=== PATIENT | female | born 1960 | race Hispanic/Latino ===

== ENCOUNTER 2024-11-06 16:23 | Emergency (ER) | payer OTHER, MEDICARE ==
[~2024-11-06] VITALS: Ht 157.5 cm; Wt 77.2 kg
[2024-11-06 16:26] VITALS: BP 174/98; PULSE 88; RESP 18; TEMP 98.3
[2024-11-06] MEDS: ketOROlac 30MG VIAL (30MG/ML) IM ONE (17:23)
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
[2024-11-06] MEDS ORDERED: MELO-108 PO (18:05)
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
--- NOTE | 2024-11-06 18:24 | HMCIMG ---
RIGHT HUMERUS RADIOGRAPHS - 2 VIEWS INDICATION: Pain COMPARISON: None FINDINGS: AP and lateral views. No acute fracture or subluxation identified. No radiopaque foreign body noted. IMPRESSION: No evidence for fracture or dislocation.
--- NOTE | 2024-11-06 18:24 | HMCIMG ---
RIGHT SHOULDER RADIOGRAPHS - 2-3 VIEWS INDICATION: Pain COMPARISON: None FINDINGS: No fracture or dislocation identified. Acromioclavicular and glenohumeral alignments are well maintained. Visible portions of the right clavicle are intact. IMPRESSION: No evidence for fracture or dislocation.
== END 2024-11-06 18:38 | disposition home or self-care (01) ==
LOC: EDH 16:23
DX: S13.4XXA Sprain of ligaments of cervical spine, initial encounter (principal); M79.18 Myalgia, other site; E11.9 Type 2 diabetes mellitus without complications; E66.9 Obesity, unspecified; I10 Essential (primary) hypertension; M19.90 Unspecified osteoarthritis, unspecified site; Z88.0 Allergy status to penicillin; V89.2XXA Person injured in unspecified motor-vehicle accident, traffic, initial encounter; Y93.89 Activity, other specified; Y92.89 Other specified places as the place of occurrence of the external cause; Y99.8 Other external cause status
CPT/HCPCS: 99285; 72125; 73060; 73020; 96372; J1885